=== PATIENT | female | born 1990 | race Caucasian/White ===

== ENCOUNTER 2017-01-11 11:49 | Emergency (ER) | payer MEDICAID, OTHER ==
--- NOTE | 2017-01-11 12:35 | ED Physician Chart ---
Chief Complaint/HPI - Patient Information Date Seen:: 01/11/17 Time Seen:: 11:55 Chief Complaint:: R axillary lesion History of Present Illness:: Pt has noticed skin lesion in R axillary region for one day. No known injury. No fever. Taking po well. Had transient nausea. No V/D. Allergies:: Allergies Allergy/AdvReac Type Severity Reaction Status Date / Time No Known Allergies Allergy Verified 01/11/17 11:55 Vitals:: Vital Signs - 8 hr 01/11/17 11:55 Temp 98.4 F HR 103 RR 18 BP 127/72 O2 Sat % 99 Historian:: Patient Family MD/PCP:: Dr. Magdaleno. LMP:: 01/07/17 Review:: Nurse's Note Reviewed Review of Systems - Review of Systems General/Constitutional: No fever, No chills, No weight loss, No weakness, No edema, No loss of appetite Skin: Skin lesions (in R axillary region), No bruising Head: No headache, No light-headedness Eyes: No diplopia ENT: No earache, No nasal drainage, No sore throat, No tinnitus Neck: No neck pain, No swelling, No thyromegaly, No stiffness Cardio Vascular: No chest pain, No palpitations, No edema Pulmonary: No SOB, No wheezing GI: Nausea (transient), No vomiting, No diarrhea, No pain G/U: No dysuria, No frequency Addictions Therapist: No vaginal discharge Musculoskeletal: No bone or joint pain, No back pain, No muscle pain Endocrine: No polyuria, No polydipsia Psychiatric: No prior psych history Hematopoietic: No bruising, No lymphadenopathy Allergic/Immuno: No urticaria, No angioedema Neurological: No syncope, No focal symptoms, No weakness, No paresthesia, No headache, No confusion Past Medical History - Past Medical History Past Medical History: No significant medical hx Family History: Diabetes Melitus (parents.), HTN (parents.), Cancer (PGM, MGF) Social History: Non Smoker, No Alcohol, No Drug Use, Single, Lives With Parents Employment:: student. Surgical History: None Psychiatricy History: None Medication: None Family Medical History - Family Member Mother History Unknown: Yes Physical Exam - Physical Examination General/Constitutional: Awake, Well-developed, well-nourished, Alert, No distress, GCS 15, Non-toxic appearing, Ambulatory Other Gen/Cons comments:: Breathes comfortably, speaks clearly, interacts normally, and ambulates without difficulty. Head: Atraumatic Eyes: Lids, conjuctiva normal, PERRL, EOMI Skin: No ecchymosis, Well hydrated, No lymphadenopathy Other Skin comments:: R axilla: There is an approx. 1 cm round scaly lesion with raised border and central clearing consistent with tinea corporis. ENMT: External ears, nose nl, Lips, teeth, gums nl, Oropharynx nl Neck: Nontender, Full ROM w/o pain, No nuchal rigidity, No mass, No stridor Respiratory: Nl effort/Exclusion, Clear to Auscultation, No Wheeze/Rhonchi/Rales Cardio Vascular: RRR (HR 90), No murmur, gallop, rubs Neuro/Psych: Alert/oriented (oriented x 3), Judgement/insight normal, Mood normal, Normal gait, No focal deficits ED Septic Shock - . Is Septic Shock (SBP<90, OR Lactate>4 mmol\L) present?: No - <6hrs of presentation: Vital Signs: Vital Signs - 8 hr 01/11/17 11:55 Temp 98.4 F HR 103 RR 18 BP 127/72 O2 Sat % 99 Reassessment (Disposition) - Reassessment Reassessment:: 1245 Pt remains stable and requests to go home now. Aftercare instructions have been given. Reassessment Condition:: Unchanged - Diagnosis Diagnosis:: Tinea corporis, stable. - Aftercare/Follow up Instructions Aftercare/Follow-Up Instructions:: Refer to Discharge Instructions Notes:: Keep affected area clean and dry. Avoid scratching or picking on the lesion. F/U with PCP Dr. Magdaleno in 2-3 days for recheck. Return to ER immediately if condition worsens or if any further questions/problems. Medication Prescribed:: Lotrimin ultra cream applied topically to affected area q12h D-15 gm tube R-0 - Patient Disposition Discharge/Transfer:: Home Time:: 12:50 Condition at Disposition:: Stable ED Discharge Plan - Patient Disposition Admit/Discharge/Transfer: PT DISCHARGED HOME Condition at Disposition: Stable Prescriptions: Clotrimazole [Lotrimin] 1 appl TP BID #15 cre Instructions: Body Ringworm
== END 2017-01-11 13:02 | disposition home or self-care (01) ==
LOC: ER 11:49
DX: B35.4 Tinea corporis (principal)